=== PATIENT | female | born 1975 | race Caucasian/White ===

== ENCOUNTER 2019-04-14 13:13 | Emergency (ER) | payer BC ==
[~2019-04-14] VITALS: Ht 160 cm; Wt 65.8 kg
[2019-04-14 13:20] VITALS: BP_SYST 107
[2019-04-14 13:44] LABS: BASOPHILS % (AUTO) 0.2 % (0.0-2.0); LYMPHOCYTES # (AUTO) 1.3 K/uL (1.0-5.5); LYMPHOCYTES % (AUTO) 31.9 % (20.5-51.5); MEAN CORPUSCULAR HEMOGLOBIN 19 pg (27-31); MEAN CORPUSCULAR HGB CONC 30 % (32-36); MEAN CORPUSCULAR VOLUME 64 fL (79.0-98.0); MONOCYTES # (AUTO) 0.2 K/uL (0.0-1.0); MONOCYTES % (AUTO) 5.8 % (1.7-9.3); NEUTROPHILS # (AUTO) 2.4 K/uL (1.8-7.7); NEUTROPHILS % (AUTO) 62.1 % (40.0-70.0); PLATELET COUNT (AUTO) 286 K/uL (130-430); RED BLOOD CELL COUNT(AUTO) 2.93 MIL/uL (4.2-6.2); RED CELL DISTRIBUTION WIDTH 17.4 % (9.0-15.0); WHITE BLOOD COUNT (AUTO) 3.9 K/uL (4.8-10.8)
[2019-04-14 13:51] LABS: HEMATOCRIT 18.6 % (36-48); HEMOGLOBIN 5.6 g/dL (12.0-16.0)
[2019-04-14 13:54] LABS: CALCIUM 8.8 mg/dL (8.4-11.0); CREATININE 0.82 mg/dL (0.55-1.30); POTASSIUM 3.6 mmol/L (3.5-5.1)
[2019-04-14 14:05] LABS: ALBUMIN 3.3 g/dL (3.4-4.8); TOTAL BILIRUBIN 0.2 mg/dL (0.0-1.0)
[2019-04-14 14:12] LABS: PROTHROMBIN TIME 10.3 SECS (9.5-12.5)
[2019-04-14 14:58] LABS: BILIRUBIN,URINE NEGATIVE (NEGATIVE); BLOOD, URINE 3+ (NEGATIVE); CLARITY/URINE SL HAZY (CLEAR); COLOR,URINE YELLOW (YELLOW); GLUCOSE,URINE NEGATIVE (NEGATIVE); KETONES,URINE NEGATIVE (NEGATIVE); LEUKOCYTE ESTERASE ,URINE NEGATIVE (NEGATIVE); NITRITE, URINE NEGATIVE (NEGATIVE); PH,URINE 5.5 (5.0-8.0); PROTEIN URINE NEGATIVE (NEGATIVE); UROBILINOGEN,URINE 0.2 (0.2-1.0)
[2019-04-14 15:14] LABS: BACTERIA,URINE MODERATE /HPF (None Seen); WBC,URINE 0-3 /HPF (0-3)
[2019-04-14 15:15] LABS: MUCUS,URINE 3+ /LPF (None Seen)
[2019-04-14] MEDS ORDERED: HYDROcodone/ACETAMIN 5-325 MG TAB (NORCO/ VICODIN) PO PRN (18:00)
[2019-04-14] MEDS ORDERED: ONDANSETRON HCL 4 MG/2 ML VIAL IM PRN (18:00)
[2019-04-14] MEDS ORDERED: CEFAZOLIN 2 GM IVPB PREMIX 50 ML IV ONE (18:01)
[2019-04-14] MEDS ORDERED: NS IRRIG SOLN 5000 ML IR ONE (18:01)
[2019-04-14] MEDS ORDERED: NS 1000 ML IV.SOLN IV ONE (18:01)
[2019-04-14] MEDS ORDERED: SUCCINYLCHOLINE CHLORIDE 20 MG/ML(QUELICIN) IVP ONE (18:01)
[2019-04-14] MEDS ORDERED: SEVOFLURANE 15 MIN GAS INH ONE (18:01)
[2019-04-14] MEDS ORDERED: MEPERIDINE HCL/PF 100 MG/ML AMP IM ONE (18:01)
[2019-04-14] MEDS ORDERED: ROCURONIUM BROMIDE 10 MG/ML (ZEMURON) IV ONE (18:01)
[2019-04-14] MEDS ORDERED: fentaNYL CITRATE/PF 100 MCG/2 ML AMP IVP ONE (18:01)
[2019-04-14] MEDS ORDERED: ONDANSETRON HCL 4 MG/2 ML VIAL IVP ONE (20:00)
[2019-04-14] MEDS ORDERED: MEPERIDINE HCL/PF 25 MG/ML DISP.SYRIN IVP ONE (20:00)
[2019-04-14 20:15] VITALS: BP_SYST 98
== END 2019-04-14 18:16 | disposition other institution (70) ==
LOC: SED 13:13
DX: N93.8 Other specified abnormal uterine and vaginal bleeding (principal); D64.9 Anemia, unspecified; J45.909 Unspecified asthma, uncomplicated
CPT/HCPCS: 36415; 58561; 76856; 80053; 81000; 84702; 85025; 85610; 86886; 86900; 86901; 86920; 87086; 88305; 99285; C1819; J0330; J0690; J2175; J3010; J7030; J7040; P9021

== ENCOUNTER 2020-05-25 20:00 | Emergency (ER) | payer BC ==
[~2020-05-25] VITALS: Ht 162.6 cm; Wt 72.6 kg
[2020-05-25 20:05] VITALS: BP_SYST 121
[2020-05-25 20:59] LABS: BILIRUBIN,URINE NEGATIVE (NEGATIVE); BLOOD, URINE 3+ (NEGATIVE); COLOR,URINE YELLOW (YELLOW); GLUCOSE,URINE NEGATIVE (NEGATIVE); KETONES,URINE NEGATIVE (NEGATIVE); LEUKOCYTE ESTERASE ,URINE NEGATIVE (NEGATIVE); NITRITE, URINE NEGATIVE (NEGATIVE); PH,URINE 5.5 (5.0-8.0); PROTEIN URINE NEGATIVE (NEGATIVE); UROBILINOGEN,URINE 0.2 (0.2-1.0)
[2020-05-25 21:06] LABS: BASOPHILS % (AUTO) 0.3 % (0.0-2.0); HEMATOCRIT 34.5 % (36-48); HEMOGLOBIN 11.2 g/dL (12.0-16.0); LYMPHOCYTES % (AUTO) 19.8 % (20.5-51.5); MEAN CORPUSCULAR HEMOGLOBIN 28 pg (27-31); MEAN CORPUSCULAR HGB CONC 33 % (32-36); MEAN CORPUSCULAR VOLUME 85 fL (79.0-98.0); MONOCYTES # (AUTO) 0.4 K/uL (0.0-1.0); MONOCYTES % (AUTO) 7.2 % (1.7-9.3); NEUTROPHILS # (AUTO) 3.8 K/uL (1.8-7.7); NEUTROPHILS % (AUTO) 72.7 % (40.0-70.0); PLATELET COUNT (AUTO) 195 K/uL (130-430); RED BLOOD CELL COUNT(AUTO) 4.06 MIL/uL (4.2-6.2); RED CELL DISTRIBUTION WIDTH 15.6 % (9.0-15.0); WHITE BLOOD COUNT (AUTO) 5.2 K/uL (4.8-10.8)
[2020-05-25 21:15] LABS: CALCIUM 9.1 mg/dL (8.4-11.0); CREATININE 0.78 mg/dL (0.55-1.30); POTASSIUM 3.7 mmol/L (3.5-5.1)
[2020-05-25 21:20] LABS: ALBUMIN 3.4 g/dL (3.4-4.8); TOTAL BILIRUBIN 0.3 mg/dL (0.0-1.0)
[2020-05-25 21:21] LABS: CLARITY/URINE HAZY (CLEAR)
[2020-05-25 21:24] LABS: BACTERIA,URINE FEW /HPF (None Seen); RBC,URINE >100 /HPF (0-3); WBC,URINE 0-3 /HPF (0-3)
[2020-05-25 21:25] LABS: MUCUS,URINE None Seen /LPF (None Seen)
[2020-05-25] MEDS: ACETAMINOPHEN 500 MG TABLET PO ONE (21:46)
[2020-05-25] MEDS: NACL 0.9% 1,000 ML IV ONE (21:46)
[2020-05-25 23:02] VITALS: BP_SYST 112
== END 2020-05-25 23:02 | disposition home or self-care (01) ==
LOC: SED 20:00
DX: D25.9 Leiomyoma of uterus, unspecified (principal); N93.9 Abnormal uterine and vaginal bleeding, unspecified; J45.909 Unspecified asthma, uncomplicated
CPT/HCPCS: 36415; 76830; 76857; 80053; 81000; 81025; 85025; 96360; 99284; J7030

== ENCOUNTER 2020-06-02 05:55 | Inpatient (IN) | payer BC, SELFPAY ==
[2020-05-28 10:46] LABS: HEMATOCRIT 34.6 % (36-48); HEMOGLOBIN 11.1 g/dL (12.0-16.0); LYMPHOCYTES # (AUTO) 1.2 K/uL (1.0-5.5); LYMPHOCYTES % (AUTO) 50.9 % (20.5-51.5); MEAN CORPUSCULAR HEMOGLOBIN 27 pg (27-31); MEAN CORPUSCULAR HGB CONC 32 % (32-36); MEAN CORPUSCULAR VOLUME 84 fL (79.0-98.0); MONOCYTES # (AUTO) 0.1 K/uL (0.0-1.0); MONOCYTES % (AUTO) 6.3 % (1.7-9.3); NEUTROPHILS % (AUTO) 42.8 % (40.0-70.0); PLATELET COUNT (AUTO) 237 K/uL (130-430); RED BLOOD CELL COUNT(AUTO) 4.13 MIL/uL (4.2-6.2); RED CELL DISTRIBUTION WIDTH 15.4 % (9.0-15.0); WHITE BLOOD COUNT (AUTO) 2.3 K/uL (4.8-10.8)
[2020-05-28 10:52] LABS: CALCIUM 9.3 mg/dL (8.4-11.0); CREATININE 0.78 mg/dL (0.55-1.30); POTASSIUM 3.5 mmol/L (3.5-5.1)
[2020-05-28 11:00] LABS: INR 0.9 (0.8-1.2); PROTHROMBIN TIME 9.3 SECS (9.5-12.5)
[2020-05-28 11:14] LABS: BILIRUBIN,URINE NEGATIVE (NEGATIVE); BLOOD, URINE 1+ (NEGATIVE); CLARITY/URINE CLEAR (CLEAR); COLOR,URINE YELLOW (YELLOW); GLUCOSE,URINE NEGATIVE (NEGATIVE); KETONES,URINE NEGATIVE (NEGATIVE); LEUKOCYTE ESTERASE ,URINE NEGATIVE (NEGATIVE); NITRITE, URINE NEGATIVE (NEGATIVE); PROTEIN URINE NEGATIVE (NEGATIVE); UROBILINOGEN,URINE 0.2 (0.2-1.0)
[2020-05-28 11:18] LABS: BACTERIA,URINE None Seen /HPF (None Seen); WBC,URINE NONE SEEN /HPF (0-3)
[~2020-06-02] VITALS: Ht 160 cm; Wt 72.6 kg
[2020-06-02 06:57] LABS: HCG,QUAL RESULT NEGATIVE (NEGATIVE)
[2020-06-02] MEDS ORDERED: CEFAZOLIN SOD 1 GM in D5W 50 ML IV ONE (07:00)
[2020-06-02] MEDS ORDERED: NS IRRIG SOLN 1000 ML IR ONE (07:45)
[2020-06-02] MEDS ORDERED: DEXAMETHASONE SOD PHOSPHATE 4 MG/ML VIAL IVP ONE (07:45)
[2020-06-02] MEDS ORDERED: SUGAMMADEX SODIUM 200 MG/2 ML VIAL IV ONE (07:45)
[2020-06-02] MEDS ORDERED: ISOFLURANE 15 MIN GAS INH ONE (07:45)
[2020-06-02] MEDS ORDERED: LR 1,000 ML IV.SOLN IV ONE (07:45)
[2020-06-02] MEDS ORDERED: PROPOFOL 200MG/ 20ML VIAL (DIPRIVAN) IV ONE (07:45)
[2020-06-02] MEDS ORDERED: SUCCINYLCHOLINE CHLORIDE 20 MG/ML(QUELICIN) IVP ONE (07:45)
[2020-06-02] MEDS ORDERED: ONDANSETRON HCL 4 MG/2 ML VIAL IVP ONE (07:45)
[2020-06-02] MEDS ORDERED: ALBU8.5H8 INH (08:41)
[2020-06-02] MEDS: LR 1,000 ML IV SCH ×2 (09:51→16:56)
[2020-06-02] MEDS ORDERED: IBUPROFEN 800 MG TABLET PO PRN (10:00)
[2020-06-02] MEDS ORDERED: NALOXONE HCL 0.4 MG/ML AMP (NARCAN) IVP PRN ×2 (10:15)
[2020-06-02] MEDS ORDERED: ONDANSETRON HCL 4 MG/2 ML VIAL IVP PRN (10:15)
[2020-06-02] MEDS ORDERED: METOCLOPRAMIDE HCL 10 MG/2 ML VIAL IVP ONE (10:15)
[2020-06-02] MEDS ORDERED: HYDROmorphone 1 MG INJ. 1 MG/ML AMPUL IVP PRN ×2 (10:15)
[2020-06-02] MEDS: HYDROmorphone 2 MG/ML VIAL ONE ×3 (10:27→10:37)
[2020-06-02] MEDS ORDERED: ONDANSETRON HCL 4 MG/2 ML VIAL ONE (10:33)
--- NOTE | 2020-06-02 11:40 | NUR ---
ADMISSION NOTE: Received patient from OR via [facility]. Patient admitted after s/p hysterectomy. Patient is awake, alert, oriented X 4. Patient oriented to hospital room, call light, toileting, pain management and safety-teach back done. Patient informed that Ciara will be her nurse and that their room number is [id number]. Personal belongings checked and Belongings List documented. Call light within reach.
--- NOTE | 2020-06-02 12:30 | NUR ---
INITIAL NOTE: RECEIVED PATIENT FROM OR. PATIENT IS AWAKE AND ALERT x4 LAYING DOWN IN BED. PATIENT IS TOLERATING OXYGEN ON ROOM AIR WITH NO SIGNS OF DISTRESS OR SHORTNESS OF BREATH NOTED. IV SITE IS PATENT WITH NO SIGNS OF INFILTRATION NOTED. BUTTERFIELD CATHETER INTACT AND DRAINING BY GRAVITY. ABDOMINAL INCISION COVERED WITH CLEAN, DRY DRESSING. PATIENT STATES SHE IS HAVING PAIN AND FEELS NAUSEOUS. PRN MEDICATION TO BE GIVEN. PATIENT IN STABLE CONDITION. SAFETY, FALL AND ASPIRATION PRECAUTIONS ARE IN PLACE WITH CALL LIGHT IN REACH. WILL CONTINUE TO MONITOR PATIENT FOR ANY CHANGES. Addendum: 06/02/20 at 1625 by Ciara Marks RN ABDOMINAL DRESSING HAS RED SATURATION ON LEFT LOWER SIDE. WILL CONTINUE TO MONITOR FOR BLEEDING.
[2020-06-02 12:37] VITALS: BP_SYST 98
--- NOTE | 2020-06-02 13:25 | NUR ---
MDPAGED PAGED ANIL ORTIZ AT [phone] SPOKE WITH JOHANNE.
[2020-06-02] MEDS: ONDANSETRON HCL 4 MG/2 ML VIAL IVP PRN ×2 (13:31→20:59)
--- NOTE | 2020-06-02 14:30 | NUR ---
RN ROUNDS: PATIENT IS AWAKE LAYING DOWN IN BED. PATIENT IS PALE AND WEAK. PATIENT'S BLOOD PRESSURE CONTINUES TO BE LOW. AWAITING MD TO CALL BACK. PATIENT WAS GIVEN FLUIDS TO DRINK. IV SITE IS PATENT WITH NO SIGNS OF INFILTRATION NOTED. WILL CONTINUE TO MONITOR PATIENT FOR ANY CHANGES.
--- NOTE | 2020-06-02 14:57 | NUR ---
CALLED: DR. ZAMORANO CALLED BACK. AWARE OF PATIENT'S CONDITION AND LOW BLOOD PRESSURE. NEW ORDERS FOR H AND H GIVEN.
[2020-06-02 15:29] LABS: HEMOGLOBIN 8.8 g/dL (12.0-16.0)
[2020-06-02 16:08] VITALS: BP_SYST 88
--- NOTE | 2020-06-02 16:20 | NUR ---
RN ROUNDS: PATIENT IS ASLEEP LAYING DOWN IN BED. PATIENT AWAKES EASILY. PATIENT STATES SHE IS STILL NAUSEOUS. INFORMED PATIENT MEDICATION IS NOT AVAILABLE YET. PATIENT VERBALIZED UNDERSTANDING. IV SITE IS PATENT. PATIENT IN STABLE CONDITION. WILL CONTINUE TO MONITOR PATIENT FOR ANY CHANGES.
--- NOTE | 2020-06-02 16:21 | NUR ---
CALLED MD: SPOKE WITH DR. ZAMORANO. INFORMED HER OF PATIENT'S H AND H. NEW ORDER TO REPEAT IN 4 HOURS AND GIVE HER A CALL ONCE THEY RESULT. WILL FOLLOW THROUGH WITH ORDERS.
[2020-06-02] MEDS: OXYCODONE/ACETAMINOPHEN 5-325 TABLET PO PRN ×3 (17:08→22:51)
[2020-06-02] MEDS: SIMETHICONE 80 MG TAB.CHEW PO PRN (18:29)
--- NOTE | 2020-06-02 18:58 | NUR ---
CLOSING NOTES: PATIENT IS AWAKE AND ALERT x4 LAYING DOWN IN BED. PATIENT IS TOLERATING OXYGEN ON ROOM AIR WITH NO SIGNS OF DISTRESS OR SHORTNESS OF BREATH NOTED. IV SITE IS PATENT WITH NO SIGNS OF INFILTRATION NOTED. BUTTERFIELD CATHETER INTACT AND DRAINING BY GRAVITY. ABDOMINAL INCISION COVERED WITH NOTED RED SOILAGE ON LOWER LEFT SIDE. PATIENT VOMITED TWICE. UNABLE TO TOLERATE CLEAR LIQUID DIET. PATIENT STATES SHE IS HAVING PAIN AND FEELS NAUSEOUS. PRN ZOFRAN TO BE GIVEN WHEN AVAILABLE. PATIENT IN STABLE CONDITION. SAFETY, FALL AND ASPIRATION PRECAUTIONS REMAINED IN PLACE THROUGHOUT THE SHIFT WITH CALL LIGHT IN REACH. WILL ENDORSE PATIENT CARE TO ONCOMING TAILINGS DAM LABORER NURSE.
--- NOTE | 2020-06-02 19:30 | NUR ---
Initial note: Received report from quentin RN. Patient is resting in bed. No acute distress. Even, nonlabored breathing on room air. IV site is patent and intact. IV fluids infusing as ordered. Original surgical abdominal dressing is clean and intact. Moderate red drainage noted. Ayala catheter is draining clear, yellow urine to gravity. Bed is locked at lowest position. Side rails up x3. Bed alarm on. Call light is with patient. Safety and fall precautions in place. Will continue plan of care.
[2020-06-02 20:00] VITALS: BP_SYST 103
[2020-06-02 20:32] LABS: HEMATOCRIT 26.1 % (36-48); HEMOGLOBIN 8.4 g/dL (12.0-16.0)
--- NOTE | 2020-06-02 20:59 | NUR ---
Nausea: Patient complained of nausea. Zofran 4mg IVP indicated. Educated patient on indications and side effects of medications. Patient verbalized understanding. Medications administered per MD order. Patient tolerated well. Will continue to monitor.
[2020-06-02] MEDS ORDERED: TEMAZEPAM 15 MG CAPSULE PO PRN (21:00)
[2020-06-02] MEDS ORDERED: SENNOSIDES/DOCUSATE SODIUM 1 TAB TABLET(SENOKOT-S) PO PRN ×2 (21:00)
--- NOTE | 2020-06-02 22:51 | NUR ---
Pain: Patient complained of severe abdominal pain. Percocet 5-325mg PO tablet indicated per MD order. Educated patient on indications and side effects of medications. Patient verbalized understanding. Medications administered per MD order. Patient tolerated well. Will continue monitoring.
--- NOTE | 2020-06-02 23:05 | NUR ---
Spoke to Dr. Silva: Spoke to Dr. Silva over the phone. Notified MD of H&H lab results. No new orders.
[2020-06-03 00:26] VITALS: BP_SYST 104
[2020-06-03] MEDS: SIMETHICONE 80 MG TAB.CHEW PO PRN ×4 (01:21→17:56)
--- NOTE | 2020-06-03 01:21 | NUR ---
Gas: Patient complained of gas pain. Mylicon 160 mg PO indicated per MD order. Patient educated on indications and side effects of medications. Patient verbalized understanding. Medications administered per MD order. Patient tolerated well. Will continue to monitor.
[2020-06-03] MEDS: LR 1,000 ML IV SCH ×2 (01:22→09:51)
--- NOTE | 2020-06-03 04:00 | NUR ---
Rounds: Patient in bed, sleeping. No acute distress. Respirations are even, nonlabored on room air. Call light is with patient. Safety and fall precautions in place. Will continue to monitor.
[2020-06-03] MEDS: OXYCODONE/ACETAMINOPHEN 5-325 TABLET PO PRN ×2 (05:06→17:57)
--- NOTE | 2020-06-03 05:06 | NUR ---
Pain/Gas: Patient complained of 10/10 abdominal pain and gas pain. Percocet 5-325mg Tablet PO and Mylicon 160 mg PO indicated per MD order. Patient educated on indications and side effects of medications. Patient verbalized understanding. Medications administered per MD order. Patient tolerated well. Will continue monitoring.
--- NOTE | 2020-06-03 06:15 | NUR ---
DC Ruiz Catheter and IV fluids: DC ruiz catheter per MD order. Catheter intact. 1000ml clear yellow emptied. Patient tolerated well. DC IV fluids per MD order. IV site is patent and dry, saline locked
--- NOTE | 2020-06-03 06:36 | NUR ---
Closing notes: Patient is in bed, resting. No acute distress. Breathing is even and nonlabored on room air. IV site is patent and dry, saline locked. Abdominal original surgical dressing is clean and intact with moderated red drainage. All needs met. Bed is locked at lowest position. Side rails up x3. Bed alarm on. Call light is with patient. Safety and fall precautions in place. Will endorse care to dayshift RN.
--- NOTE | 2020-06-03 07:08 | NUR ---
Nutrition Update Riley Scale 16 noted. Pt admitted for Excessive and Frequent Menstruation Diet: Clear liquid BMI: 28.3 kg/m2 RD to follow per nutrition care standards.
--- NOTE | 2020-06-03 07:30 | NUR ---
Opening Note Report received from BALA RN. Patient found in [facility], A/4, speaking in full, complete sentences with ease. Patient reports 8/10 abdominal pain that she says is more related to gas distention rather than actual pain. Patient's abdominal incision is covered with a dressing that was placed in the OR, with moderate dried blood saturation to the dressing. Patient reports mild dizziness and slight nausea but denies emesis. Bed in low and locked position, side rails up x 2, call light within reach, bed alarm on. SCDs on bilateral lower legs. Patient's peripheral IV flushed and patent.
[2020-06-03 08:00] VITALS: BP_SYST 102
[2020-06-03 08:11] LABS: HEMOGLOBIN 8.2 g/dL (12.0-16.0)
[2020-06-03 12:00] VITALS: BP_SYST 92
--- NOTE | 2020-06-03 12:00 | NUR ---
Bedside commode Patient able to sit on edge of bed and stand without dizziness. Provided patient with bedside commode to void. Patient assisted back into bed.
--- NOTE | 2020-06-03 13:00 | NUR ---
Ambulation trial Assisted patient to sit up on side on bed, patient able to stand but not able to ambulate. Patient reports severe dizziness with standing. Patient assisted back into bed, side rails up x 2.
[2020-06-03] MEDS: ONDANSETRON HCL 4 MG/2 ML VIAL IVP PRN (13:05)
--- NOTE | 2020-06-03 15:50 | NUR ---
Bedside Commode Patient used bedside commode to void.
[2020-06-03 16:00] VITALS: BP_SYST 88
--- NOTE | 2020-06-03 16:00 | NUR ---
Ambulation Trial Patient able to sit on side of bed, stand up and walk 10 ft. + dizziness after walking. Patient escorted back to bed, side rails up x 2, call light within reach.
--- NOTE | 2020-06-03 16:21 | NUR ---
Peripheral IV insertion Peripheral IV to left hand infiltrated. New IV inserted to left AC 20 g
--- NOTE | 2020-06-03 19:11 | NUR ---
Closing Note Patient in bed, NAD, peripheral IV intact. Will continue to ambulate patient with assistance. Will endorse care to NOC RN.
--- NOTE | 2020-06-03 19:30 | NUR ---
OPENING NOTS Patient is resting, dressings dry and still intact with strips, no respiratory distress observed. IV site patent, dressings c/d/i. Call light within reach, bed alarm refused, patient demonstrated proper usage of call light, bed at lowest position. Will continue to monitor.
[2020-06-03 20:00] VITALS: BP_SYST 90
[2020-06-04] VITALS: BP_SYST 88
--- NOTE | 2020-06-04 00:25 | NUR ---
Commode emptied, patient is resting, no signs of acute respiratory distress noted. PRN medications provided. will continue to monitor.
[2020-06-04] MEDS: SIMETHICONE 80 MG TAB.CHEW PO PRN ×4 (00:33→13:09)
--- NOTE | 2020-06-04 06:42 | NUR ---
CLOSING NOTS Patient is resting at the chair by bedside, dressings dry and still intact with strips, no respiratory distress observed. IV site patent, dressings c/d/i. Call light within reach, bed alarm refused, patient demonstrated proper usage of call light, bed at lowest position. Patient complains of pain caused by gas, PRN medication provided. All needs met throughout shift. Will endorse care to oncoming shift.
--- NOTE | 2020-06-04 07:46 | NUR ---
Opening Note received SBAR report from manufacturing supervisor 2nd shift RN, patient resting in bed, respirations even and unlabored on room air, no acute distress noted, surgical incision to abdomen clean, dry, and intact, no bleeding noted from surgical site, patient reports small amount of bleeding on mariama pad, patient reports pain is controlled at this time, educated patient on use of call light and asked to call for assistance, patient verbalized understanding, educated patient on use of bed alarm for patient safety, patient refusing bed alarm, call light in reach, bed in low and locked position.
[2020-06-04 09:50] VITALS: BP_SYST 85
--- NOTE | 2020-06-04 10:01 | NUR ---
Spoke with Physician spoke with Dr. Silva, informed her of patients current vital signs BP 85/52, HR 80, informed her that patient is asymptomatic and denies any dizziness, no acute distress noted, per Dr. Silva this is that patients baseline, no new orders received, per Dr. Silva she will be in today around noon to see the patient.
--- NOTE | 2020-06-04 12:03 | NUR ---
Physician Rounds Dr. Silva at bedside examining patient.
[2020-06-04 12:22] VITALS: BP_SYST 97
[2020-06-04 12:24] VITALS: BP_SYST 97
--- NOTE | 2020-06-04 13:34 | NUR ---
Discharge provided patient with discharge packet and instructions, instructed patient to follow up with Dr. Silva in two weeks, patient verbalized understanding, patient states that Dr. Silva gave her prescriptions for pain medications prior to surgery, per patient she has the medications at home, IV catheter removed, catheter intact, no bleeding, no bleeding or drainage noted from surgical incision, abdominal binder in place, respirations even and unlabored on room air, patient reports pain is controlled, no acute distress noted, all belongings sent with patient, patient taken to parking lot via wheelchair, patient driven home by her son Bert for discharge.
== END 2020-06-04 13:34 | disposition home or self-care (01) | DRG 743 ==
LOC: SMU 05:55
PROVIDERS: ADMIT Obstetrics & Gynecology; ATTEND Obstetrics & Gynecology
PROC: 0UT70ZZ Resection of Bilateral Fallopian Tubes, Open Approach (ICD-10-PCS; 2020-06-02)
PROC: 0UT90ZZ Resection of Uterus, Open Approach (ICD-10-PCS; principal; 2020-06-02 07:30)
DX: D25.9 Leiomyoma of uterus, unspecified (principal); Z03.818 Encounter for observation for suspected exposure to other biological agents ruled out
CPT/HCPCS: 36415; 80048; 81000-TC; 84703; 85018-TC; 85025; 85610-TC; 85730-TC; 86886; 86900; 86901; 87081; 87086; 88307; 94010; 94760; C9399; J0330; J0690; J1100; J1170; J2405; J2704; J7060; J7120; U0003-CS

== ENCOUNTER 2022-05-10 06:27 | Day surgery (SDC) | payer BC ==
[~2022-05-10] VITALS: Ht 160 cm; Wt 77.1 kg
[~2022-05-10 06:27] MED LIST: ALBU8.5H8 INH
[2022-05-10] MEDS ORDERED: CEFAZOLIN SOD 1 GM in D5W 50 ML IV ONE (07:00)
[2022-05-10] MEDS ORDERED: KETOROLAC TROMETHAMINE 30 MG VIAL IVP ONE (10:37)
[2022-05-10] MEDS ORDERED: DEXAMETHASONE SOD PHOSPHATE 4 MG/ML VIAL IVP ONE (10:37)
[2022-05-10] MEDS ORDERED: CEFAZOLIN 2 GM IVPB PREMIX 50 ML IV ONE (10:37)
[2022-05-10] MEDS ORDERED: fentaNYL CITRATE 250 MCG/5 ML AMP IV ONE (10:37)
[2022-05-10] MEDS ORDERED: PROPOFOL 200MG/ 20ML VIAL (DIPRIVAN) IV ONE (10:37)
[2022-05-10] MEDS ORDERED: ROCURONIUM BROMIDE 10 MG/ML (ZEMURON) IV ONE (10:37)
[2022-05-10] MEDS ORDERED: NS IRRIG SOLN 1000 ML IR ONE (10:37)
[2022-05-10] MEDS ORDERED: ONDANSETRON HCL 4 MG/2 ML VIAL IVP ONE (10:37)
[2022-05-10] MEDS ORDERED: MIDAZOLAM HCL 5 MG/5 ML VIAL IVP ONE (10:37)
[2022-05-10] MEDS ORDERED: BUPIVACAINE /PF 0.25% 30 ML VIAL INJ ONE (10:37)
[2022-05-10] MEDS ORDERED: LIDOCAINE 1% 10 MG/ML, 20 ML MDV INJ ONE (10:37)
[2022-05-10] MEDS ORDERED: LR 1,000 ML IV.SOLN IV ONE (10:37)
[2022-05-10] MEDS ORDERED: NS 1000 ML IV.SOLN IV ONE (10:37)
[2022-05-10] MEDS ORDERED: SUGAMMADEX SODIUM 200 MG/2 ML VIAL IV ONE (10:37)
[2022-05-10] MEDS ORDERED: DESFLURANE 15 MIN GAS INH ONE (10:37)
[2022-05-10] MEDS ORDERED: ACETAMINOPHEN I.V. 1000 MG 100 ML IV ONE (11:04)
[2022-05-10] MEDS ORDERED: MEPERIDINE HCL/PF 25 MG/ML DISP.SYRIN IVP PRN (11:30)
[2022-05-10] MEDS ORDERED: hydrALAZINE HCL 20 MG/ML VIAL IVP PRN (11:30)
[2022-05-10] MEDS ORDERED: LR 1,000 ML IV SCH (11:30)
[2022-05-10] MEDS ORDERED: METOCLOPRAMIDE HCL 10 MG/2 ML VIAL IVP PRN (11:30)
[2022-05-10] MEDS ORDERED: HYDROmorphone 1 MG/ML INJ. CARTRIDGE IVP PRN ×2 (11:30)
[2022-05-10] MEDS ORDERED: MIDAZOLAM HCL 2 MG/2 ML VIAL (VERSED) IVP PRN (11:30)
[2022-05-10] MEDS ORDERED: IBUPROFEN 800 MG TABLET PO PRN (13:15)
[2022-05-10] MEDS ORDERED: OXYCODONE/ACETAMINOPHEN 5-325 TABLET PO PRN ×2 (13:15)
[2022-05-10] MEDS ORDERED: ONDANSETRON HCL 4 MG/2 ML VIAL IM PRN (13:15)
[2022-05-10] MEDS ORDERED: METOCLOPRAMIDE HCL 10 MG/2 ML VIAL ONE (14:04)
[2022-05-10] MEDS ORDERED: HYDROmorphone 1 MG/ML INJ. CARTRIDGE ONE (14:05)
[2022-05-10 14:33] VITALS: BP_SYST 91
[2022-05-10] MEDS ORDERED: IBUPROFEN 600 MG TABLET ONE (16:00)
[2022-05-10] MEDS ORDERED: ONDANSETRON HCL 4 MG/2 ML VIAL ONE (16:27)
[2022-05-10] MEDS ORDERED: ONDANSETRON HCL 4 MG/2 ML VIAL IVP PRN (16:30)
== END 2022-05-10 18:30 | disposition home or self-care (01) ==
LOC: SDS 06:27 → SMU 06:28 → SDS 18:30
PROVIDERS: ATTEND Obstetrics & Gynecology
DX: N80.1 Endometriosis of ovary (principal); N83.202 Unspecified ovarian cyst, left side; R19.00 Intra-abdominal and pelvic swelling, mass and lump, unspecified site; J45.909 Unspecified asthma, uncomplicated; I10 Essential (primary) hypertension; E66.9 Obesity, unspecified; Z79.899 Other long term (current) drug therapy; Z20.822 Contact with and (suspected) exposure to COVID-19
CPT/HCPCS: 36415 ×2; 58662; 86886; 86900; 86901; 88305; 87426; U0003; J3490 ×2; J0690 ×2; J1100; J1885; J2001; J2765; J2250; J2405; J2704; J3010; J1170; J7060; J7120; J7030; C1782; C1727; J0131

== ENCOUNTER 2024-08-06 15:01 | Emergency (ER) | payer BC, MEDICAID ==
[~2024-08-06] VITALS: Ht 162.6 cm; Wt 79.4 kg
[2024-08-06 15:16] VITALS: BP_SYST 131; PULSE 76; RESP 18; TEMP 97.8; O2SAT 98
[2024-08-06] MEDS ORDERED: TRAM50TA2 PO (19:45)
[2024-08-06] MEDS: KETOROLAC TROMETHAMINE 60 MG/2 ML VIAL IM ONE (19:45)
[2024-08-06] MEDS ORDERED: METH-634 PO (19:45)
[2024-08-06] MEDS ORDERED: IBUP-1969 PO (19:45)
[2024-08-06 19:59] VITALS: BP_SYST 131; PULSE 76; RESP 18; TEMP 97.8; O2SAT 98
== END 2024-08-06 19:55 | disposition home or self-care (01) ==
LOC: SED 15:01
DX: M54.12 Radiculopathy, cervical region (principal); J45.909 Unspecified asthma, uncomplicated
CPT/HCPCS: 99285; 72125; 96372; J1885